=== PATIENT | male | born 1955 | race Caucasian/White ===

== ENCOUNTER 2016-10-10 21:17 | Emergency (ER) | payer BC ==
[~2016-10-10] VITALS: Ht 167.6 cm; Wt 104.5 kg
[~2016-10-10 21:17] MED LIST: LOTREL
[2016-10-10 21:18] VITALS: TEMP 98.4
[2016-10-10] MEDS ORDERED: LEXAPRO 10MG10 MG PO (21:40)
[2016-10-10] MEDS ORDERED: HCTZ 25MG TAB25 MG PO (21:40)
[2016-10-10] MEDS ORDERED: LOTREL 5/10MG C1 CAP PO (21:40)
[2016-10-10] MEDS ORDERED: AMBIEN 10MG10 MG PO (21:40)
[2016-10-10] MEDS ORDERED: NORVASC 5MG5 MG/TAB PO (22:47)
[2016-10-10 23:03] VITALS: BP 136/91; PULSE 77
== END 2016-10-10 23:05 | disposition home or self-care (01) ==
LOC: COL.ER 21:17
DX: T78.3XXA Angioneurotic edema, initial encounter (principal); I10 Essential (primary) hypertension
CPT/HCPCS: J1200